=== PATIENT | male | born 1990 | race Caucasian/White ===

== ENCOUNTER 2024-12-25 06:15 | Day surgery (SDC) | payer BC, SELFPAY | END 2024-12-25 11:57 | disposition home or self-care (01) | LOC: GI 06:15 | PROVIDERS: ATTENDING PHYSICIAN Surgery | DX: Z12.11 Encounter for screening for malignant neoplasm of colon (principal); Z80.0 Family history of malignant neoplasm of digestive organs; K63.5 Polyp of colon | CPT/HCPCS: 45380; 88305 ==